=== PATIENT | male | born 1945 | race Caucasian/White ===

== ENCOUNTER 2020-06-16 13:31 | Inpatient (IN) ==
[2020-06-16] MEDS ORDERED: Ondansetron 4 MG/2 ML VIAL IVP PRN (15:02)
[2020-06-16] MEDS ORDERED: Naloxone 0.4 MG/ML INJ IVP PRN (15:02)
[2020-06-16] MEDS ORDERED: D5% in Water 1,000 ML IVC PRN (15:04)
[2020-06-16] MEDS ORDERED: *HR* Dextrose 50 % in Water (Vial) 50 ML VIAL IVP PRN (15:04)
[2020-06-16] MEDS ORDERED: Dextrose Gel 15 GM/37.5 ML TUBE PO PRN ×2 (15:04)
[2020-06-16 16:52] LABS: Calcium 9.4 mg/dL (8.6-10.3); Potassium 3.7 mEq/L (3.5-5.1)
[2020-06-16] MEDS: *HR* Heparin 5,000 UNIT/ML VIAL SQ SCH (17:03)
[2020-06-16] MEDS: Insulin LISPRO 300 UNITS/3 ML VIAL SUBQ SCH (17:05)
[2020-06-16 19:34] LABS: Hematocrit 35.5 % (37.5-50.1); Hemoglobin 12.6 g/dL (12.9-16.9); Immature Granulocytes % 0.7 % (0-4); Lymphocytes # 0.3 K/mcL (0.6-4.6); Lymphocytes % 11.6 %; Mean Corpuscular HGB Conc 35.5 g/dL (31.6-35.5); Mean Corpuscular Hemoglobin 40.1 pg (28.0-33.3); Mean Corpuscular Volume 113.1 fL (83.0-100.0); Mean Platelet Volume 9.7 fL (9.4-12.4); Monocytes # 0.2 K/mcL (0.0-1.3); Monocytes % 6.5 %; Neutrophils # 2.4 K/mcL (1.6-8.9); Platelet Count 155 K/mcL (140-400); Red Blood Count 3.14 M/mcL (4.19-5.50); Red Cell Distribution Width 12.1 % (11.5-14.5); Segmented Neutrophils % 81.2 %; White Blood Count 2.9 K/mcL (4.3-11.1)
[2020-06-16 19:55] LABS: Platelet Estimate Normal (Normal)
[2020-06-16 19:56] LABS: Macrocytosis Present (Not Present)
[2020-06-16] MEDS ORDERED: Insulin DETEMIR 100 UNIT/ML X5UNITS SUBQ SCH (21:00)
[2020-06-17 03:51] LABS: Hematocrit 38.2 % (37.5-50.1); Hemoglobin 13.4 g/dL (12.9-16.9); Immature Granulocytes % 0.7 % (0-4); Lymphocytes # 0.3 K/mcL (0.6-4.6); Lymphocytes % 11.6 %; Mean Corpuscular HGB Conc 35.1 g/dL (31.6-35.5); Mean Corpuscular Hemoglobin 40.1 pg (28.0-33.3); Mean Corpuscular Volume 114.4 fL (83.0-100.0); Mean Platelet Volume 9.3 fL (9.4-12.4); Monocytes # 0.2 K/mcL (0.0-1.3); Neutrophils # 2.2 K/mcL (1.6-8.9); Platelet Count 176 K/mcL (140-400); Red Blood Count 3.34 M/mcL (4.19-5.50); Red Cell Distribution Width 11.8 % (11.5-14.5); Segmented Neutrophils % 79.7 %; White Blood Count 2.8 K/mcL (4.3-11.1)
[2020-06-17 03:53] LABS: INR 1.2
[2020-06-17 04:11] LABS: Calcium 9.4 mg/dL (8.6-10.3); Magnesium 2.1 mg/dL (1.6-2.6); Potassium 3.9 mEq/L (3.5-5.1)
[2020-06-17 04:37] LABS: Platelet Estimate Normal (Normal)
[2020-06-17 04:38] LABS: Anisocytosis 1+ (Not Present); Macrocytosis Present (Not Present)
[2020-06-17] MEDS: *HR* Heparin 5,000 UNIT/ML VIAL SQ SCH ×2 (05:55→20:55)
[2020-06-17] MEDS: Insulin LISPRO 300 UNITS/3 ML VIAL SUBQ SCH ×4 (08:31→18:27)
[2020-06-17] MEDS: Azithromycin 500 MG in 0.9 % Sodium Chloride 250 ML IVPB SCH (08:31)
[2020-06-17] MEDS: cefTRIAXone 1,000 MG in Water for inj. (sterile) 10 ML IVP SCH (08:31)
[2020-06-17] MEDS ORDERED: Melatonin 3 MG TABLET PO PRN (17:00)
[2020-06-17] MEDS ORDERED: Saline Nasal Spray 44 ML BOTTLE NS PRN (17:00)
[2020-06-17] MEDS ORDERED: Benzonatate 100 MG CAPSULE PO PRN (17:00)
[2020-06-17] MEDS: NIFEdipine XL (24 HR) 60 MG TAB.ER.24 PO SCH (18:26)
[2020-06-17] MEDS: (Netarsudil Mesylate [Rhopressa] 2.5 ML Drops) OP SCH (18:27)
[2020-06-17] MEDS: carvediloL 25 MG TABLET PO SCH (20:54)
[2020-06-17] MEDS: Insulin DETEMIR 100 UNIT/ML X5UNITS SUBQ SCH (20:55)
[2020-06-17] MEDS: Artificial Tears SOLN 15 ML BOTTLE BOTH EYES SCH (20:56)
[2020-06-17] MEDS: Ipratropium 1 PUFF INHALER IH SCH (22:57)
[2020-06-18] MEDS: Ipratropium 1 PUFF INHALER IH SCH ×4 (03:39→21:31)
[2020-06-18] MEDS: *HR* Heparin 5,000 UNIT/ML VIAL SQ SCH ×3 (05:21→20:34)
[2020-06-18 08:25] LABS: Estimated Average Glucose 131 mg/dl; Hemoglobin A1C 6.2 %
[2020-06-18 08:53] LABS: Basophils % 0.1 %
[2020-06-18 08:54] LABS: Calcium 9.3 mg/dL (8.6-10.3)
[2020-06-18] MEDS: NIFEdipine XL (24 HR) 60 MG TAB.ER.24 PO SCH (08:54)
[2020-06-18] MEDS: carvediloL 25 MG TABLET PO SCH ×2 (08:54→16:54)
[2020-06-18] MEDS: Hydroxyurea 500 MG CAPSULE PO SCH (08:55)
[2020-06-18] MEDS: Insulin DETEMIR 100 UNIT/ML X5UNITS SUBQ SCH ×2 (08:58→20:35)
[2020-06-18] MEDS: calcitrioL 0.25 MCG CAPSULE PO SCH (08:58)
[2020-06-18] MEDS: Multivit/Ca/Min/Fe/FA 1 TAB TABLET PO SCH (08:58)
[2020-06-18] MEDS: Cholecalciferol (D-3) 1,000 UNIT (25MCG) TABLET PO SCH (08:58)
[2020-06-18] MEDS: Azithromycin 500 MG in 0.9 % Sodium Chloride 250 ML IVPB SCH (08:59)
[2020-06-18] MEDS: cefTRIAXone 1,000 MG in Water for inj. (sterile) 10 ML IVP SCH (08:59)
[2020-06-18] MEDS: Artificial Tears SOLN 15 ML BOTTLE BOTH EYES SCH ×2 (09:00→20:40)
[2020-06-18] MEDS ORDERED: Furosemide 20 MG TABLET PO SCH (09:00)
[2020-06-18] MEDS: Insulin LISPRO 300 UNITS/3 ML VIAL SUBQ SCH ×6 (09:01→16:55)
[2020-06-18 09:05] LABS: Mean Corpuscular HGB Conc 35.5 g/dL (31.6-35.5); Mean Platelet Volume 9.7 fL (9.4-12.4); Segmented Neutrophils % 80.3 %
[2020-06-18 09:06] LABS: Hematocrit 37.7 % (37.5-50.1); Hemoglobin 13.4 g/dL (12.9-16.9); Immature Granulocytes % 0.7 % (0-4); Immature Platelets 2.5 % (1.1-6.1); Lymphocytes # 0.8 K/mcL (0.6-4.6); Mean Corpuscular Hemoglobin 39.2 pg (28.0-33.3); Mean Corpuscular Volume 110.2 fL (83.0-100.0); Monocytes # 0.6 K/mcL (0.0-1.3); Monocytes % 7.9 %; Platelet Count 241 K/mcL (140-400); Red Blood Count 3.42 M/mcL (4.19-5.50); Red Cell Distribution Width 11.6 % (11.5-14.5); White Blood Count 7.5 K/mcL (4.3-11.1)
[2020-06-18 09:19] LABS: Macrocytosis Present (Not Present); Platelet Estimate Normal (Normal)
[2020-06-18] MEDS: (Netarsudil Mesylate [Rhopressa] 2.5 ML Drops) OP SCH (16:58)
[2020-06-18] MEDS ORDERED: Chloraseptic Spray 177 ML BOTTLE MM PRN (17:41)
[2020-06-18] MEDS ORDERED: Saliva Stimulant 44.3ml BOTTLE PO PRN (17:41)
[2020-06-18] MEDS: Chlorhexidine Rinse 15 ML MOUTHWASH MM SCH (20:34)
[2020-06-19] MEDS: Ipratropium 1 PUFF INHALER IH SCH ×4 (04:19→22:33)
[2020-06-19 05:23] LABS: Hematocrit 34.8 % (37.5-50.1); Hemoglobin 12.2 g/dL (12.9-16.9); Mean Corpuscular HGB Conc 35.1 g/dL (31.6-35.5); Mean Corpuscular Volume 111.2 fL (83.0-100.0); Mean Platelet Volume 9.5 fL (9.4-12.4); Platelet Count 230 K/mcL (140-400); Red Blood Count 3.13 M/mcL (4.19-5.50); Red Cell Distribution Width 11.6 % (11.5-14.5); White Blood Count 5.7 K/mcL (4.3-11.1)
[2020-06-19 05:53] LABS: Calcium 9.4 mg/dL (8.6-10.3); Phosphorous 2.5 mg/dL (2.7-4.5); Potassium 3.2 mEq/L (3.5-5.1)
[2020-06-19] MEDS: *HR* Heparin 5,000 UNIT/ML VIAL SQ SCH ×3 (06:12→20:55)
[2020-06-19] MEDS: cefTRIAXone 1,000 MG in Water for inj. (sterile) 10 ML IVP SCH (07:42)
[2020-06-19] MEDS: Chlorhexidine Rinse 15 ML MOUTHWASH MM SCH ×2 (07:42→20:55)
[2020-06-19] MEDS: NIFEdipine XL (24 HR) 60 MG TAB.ER.24 PO SCH (07:43)
[2020-06-19] MEDS: Cholecalciferol (D-3) 1,000 UNIT (25MCG) TABLET PO SCH (07:43)
[2020-06-19] MEDS: Multivit/Ca/Min/Fe/FA 1 TAB TABLET PO SCH (07:43)
[2020-06-19] MEDS: Azithromycin 250 MG TABLET PO SCH (07:44)
[2020-06-19] MEDS: calcitrioL 0.25 MCG CAPSULE PO SCH (07:45)
[2020-06-19] MEDS: Hydroxyurea 500 MG CAPSULE PO SCH (07:45)
[2020-06-19] MEDS: carvediloL 25 MG TABLET PO SCH ×2 (07:46→16:47)
[2020-06-19] MEDS: Insulin LISPRO 300 UNITS/3 ML VIAL SUBQ SCH ×6 (07:47→16:47)
[2020-06-19] MEDS: Insulin DETEMIR 100 UNIT/ML X5UNITS SUBQ SCH ×2 (07:48→20:56)
[2020-06-19] MEDS: Artificial Tears SOLN 15 ML BOTTLE BOTH EYES SCH ×2 (11:29→20:59)
[2020-06-19] MEDS ORDERED: Potassium Phosphate 44 MEQ in 0.9 % Sodium Chloride 250 ML IVPB ONE (15:44)
[2020-06-19] MEDS: (Netarsudil Mesylate [Rhopressa] 2.5 ML Drops) OP SCH (16:47)
[2020-06-20] MEDS: Ipratropium 1 PUFF INHALER IH SCH ×4 (04:10→21:53)
[2020-06-20 05:10] LABS: Hematocrit 34.2 % (37.5-50.1); Hemoglobin 11.9 g/dL (12.9-16.9); Mean Corpuscular HGB Conc 34.8 g/dL (31.6-35.5); Mean Corpuscular Hemoglobin 38.9 pg (28.0-33.3); Mean Corpuscular Volume 111.8 fL (83.0-100.0); Mean Platelet Volume 9.8 fL (9.4-12.4); Platelet Count 233 K/mcL (140-400); Red Blood Count 3.06 M/mcL (4.19-5.50); Red Cell Distribution Width 11.3 % (11.5-14.5); White Blood Count 4.5 K/mcL (4.3-11.1)
[2020-06-20 05:51] LABS: Calcium 9.3 mg/dL (8.6-10.3); Magnesium 1.6 mg/dL (1.6-2.6); Phosphorous 3.5 mg/dL (2.7-4.5); Potassium 3.9 mEq/L (3.5-5.1)
[2020-06-20] MEDS: *HR* Heparin 5,000 UNIT/ML VIAL SQ SCH ×3 (05:57→21:16)
[2020-06-20] MEDS: Insulin DETEMIR 100 UNIT/ML X5UNITS SUBQ SCH ×2 (07:30→21:17)
[2020-06-20] MEDS: Azithromycin 250 MG TABLET PO SCH (07:31)
[2020-06-20] MEDS: Chlorhexidine Rinse 15 ML MOUTHWASH MM SCH ×2 (07:31→21:17)
[2020-06-20] MEDS: Multivit/Ca/Min/Fe/FA 1 TAB TABLET PO SCH (07:31)
[2020-06-20] MEDS: NIFEdipine XL (24 HR) 60 MG TAB.ER.24 PO SCH (07:31)
[2020-06-20] MEDS: Hydroxyurea 500 MG CAPSULE PO SCH (07:31)
[2020-06-20] MEDS: calcitrioL 0.25 MCG CAPSULE PO SCH (07:31)
[2020-06-20] MEDS: Cholecalciferol (D-3) 1,000 UNIT (25MCG) TABLET PO SCH (07:31)
[2020-06-20] MEDS: Insulin LISPRO 300 UNITS/3 ML VIAL SUBQ SCH ×6 (07:32→17:07)
[2020-06-20] MEDS: carvediloL 25 MG TABLET PO SCH ×2 (07:32→17:06)
[2020-06-20] MEDS: cefTRIAXone 1,000 MG in Water for inj. (sterile) 10 ML IVP SCH (07:33)
[2020-06-20] MEDS ORDERED: 0.9 % Sodium Chloride 500 ML IVC SCH (08:15)
[2020-06-20] MEDS: Artificial Tears SOLN 15 ML BOTTLE BOTH EYES SCH ×2 (09:17→21:16)
[2020-06-20] MEDS ORDERED: 0.9 % Sodium Chloride 500 ML ONE (09:18)
[2020-06-21] MEDS: Ipratropium 1 PUFF INHALER IH SCH ×4 (03:46→22:54)
[2020-06-21] MEDS: *HR* Heparin 5,000 UNIT/ML VIAL SQ SCH ×3 (04:42→21:32)
[2020-06-21 06:06] LABS: Hematocrit 34.6 % (37.5-50.1); Hemoglobin 12.4 g/dL (12.9-16.9); Mean Corpuscular HGB Conc 35.8 g/dL (31.6-35.5); Mean Corpuscular Hemoglobin 39.2 pg (28.0-33.3); Mean Corpuscular Volume 109.5 fL (83.0-100.0); Mean Platelet Volume 9.3 fL (9.4-12.4); Platelet Count 269 K/mcL (140-400); Red Blood Count 3.16 M/mcL (4.19-5.50); Red Cell Distribution Width 11.3 % (11.5-14.5); White Blood Count 6.6 K/mcL (4.3-11.1)
[2020-06-21 06:31] LABS: Calcium 9.5 mg/dL (8.6-10.3); Magnesium 2.1 mg/dL (1.6-2.6); Phosphorous 3.1 mg/dL (2.7-4.5); Potassium 3.4 mEq/L (3.5-5.1)
[2020-06-21] MEDS: cefTRIAXone 1,000 MG in Water for inj. (sterile) 10 ML IVP SCH (07:22)
[2020-06-21] MEDS: Chlorhexidine Rinse 15 ML MOUTHWASH MM SCH ×2 (07:23→21:31)
[2020-06-21] MEDS: Hydroxyurea 500 MG CAPSULE PO SCH (07:24)
[2020-06-21] MEDS: Azithromycin 250 MG TABLET PO SCH (07:24)
[2020-06-21] MEDS: Cholecalciferol (D-3) 1,000 UNIT (25MCG) TABLET PO SCH (07:24)
[2020-06-21] MEDS: NIFEdipine XL (24 HR) 60 MG TAB.ER.24 PO SCH (07:24)
[2020-06-21] MEDS: carvediloL 25 MG TABLET PO SCH ×2 (07:25→17:02)
[2020-06-21] MEDS: calcitrioL 0.25 MCG CAPSULE PO SCH (07:25)
[2020-06-21] MEDS: Insulin DETEMIR 100 UNIT/ML X5UNITS SUBQ SCH ×2 (07:25→21:33)
[2020-06-21] MEDS: Multivit/Ca/Min/Fe/FA 1 TAB TABLET PO SCH (07:25)
[2020-06-21] MEDS: Insulin LISPRO 300 UNITS/3 ML VIAL SUBQ SCH ×6 (07:25→17:02)
[2020-06-21] MEDS: Artificial Tears SOLN 15 ML BOTTLE BOTH EYES SCH ×2 (09:07→21:30)
[2020-06-22] MEDS: Ipratropium 1 PUFF INHALER IH SCH ×2 (03:47→09:46)
[2020-06-22] MEDS: *HR* Heparin 5,000 UNIT/ML VIAL SQ SCH (05:50)
[2020-06-22] MEDS: Insulin LISPRO 300 UNITS/3 ML VIAL SUBQ SCH ×4 (08:04→12:21)
[2020-06-22 08:09] VITALS: BP 138/81
[2020-06-22] MEDS: NIFEdipine XL (24 HR) 60 MG TAB.ER.24 PO SCH (09:55)
[2020-06-22] MEDS: Cholecalciferol (D-3) 1,000 UNIT (25MCG) TABLET PO SCH (09:55)
[2020-06-22] MEDS: Chlorhexidine Rinse 15 ML MOUTHWASH MM SCH (09:55)
[2020-06-22] MEDS: calcitrioL 0.25 MCG CAPSULE PO SCH (09:55)
[2020-06-22] MEDS: Multivit/Ca/Min/Fe/FA 1 TAB TABLET PO SCH (09:55)
[2020-06-22] MEDS: carvediloL 25 MG TABLET PO SCH (09:56)
[2020-06-22] MEDS: Insulin DETEMIR 100 UNIT/ML X5UNITS SUBQ SCH (09:56)
[2020-06-22] MEDS: Hydroxyurea 500 MG CAPSULE PO SCH (09:56)
[2020-06-22] MEDS: Artificial Tears SOLN 15 ML BOTTLE BOTH EYES SCH (09:58)
== END 2020-06-22 12:35 | disposition other institution (70) | DRG 871 ==
LOC: 2NENU → SUATTDRO 13:54 → 2NENU 14:06 → SUATTDRO 06-18 14:53 → 2NENU 06-20 22:19
PROVIDERS: ADMIT Internal Medicine; ATTEND Family Medicine